=== PATIENT | female | born 1975 ===

== ENCOUNTER 2023-02-20 05:35 | Day surgery (SDC) | payer OTHER ==
[~2023-02-20] VITALS: Ht 162.6 cm; Wt 81.6 kg
[~2023-02-20 05:35] MED LIST: SYNTHROID137 MCG PO
== END 2023-02-20 15:00 | disposition home or self-care (01) ==
LOC: CIR.AMB 05:35
PROVIDERS: ATTEND Obstetrics & Gynecology
DX: N95.0 Postmenopausal bleeding (principal); D39.0 Neoplasm of uncertain behavior of uterus; N87.1 Moderate cervical dysplasia; Z20.822 Contact with and (suspected) exposure to COVID-19

== ENCOUNTER 2023-03-27 05:22 | Day surgery (SDC) | payer OTHER ==
[2023-03-24 09:34] LABS: HEMATOCRIT 41.3 % (36.0-45.00); HEMOGLOBIN 14.2 g/dL (12.0-15.00); MEAN CELL VOLUME 92.7 fL (80.00-100.00); MEAN CORPUSCULAR HEMOGLOBIN 31.9 pg (27.00-32.0); MEAN CORPUSCULAR HGB CONC 34.4 g/dl (32.0-36.0); RED BLOOD COUNT 4.46 M/uL (4.00-6.00); RED CELL DISTRIBUTION WIDTH 12.9 % (11.5-14.5)
[2023-03-24 09:48] LABS: PLATELET COUNT 252 K/uL (150-450)
[2023-03-24 10:05] LABS: URINE APPEARANCE Cloudy; URINE BILIRRUBIN Negative (NEGATIVE); URINE BLOOD Negative; URINE COLOR Yellow; URINE GLUCOSE Negative (NEGATIVE); URINE LEUKOCYTE Trace; URINE NITRATE Negative; URINE PROTEIN Negative (NEGATIVE); URINE UROBILINOGEN 0.2 E.U./dl
[2023-03-24 10:09] LABS: URINE EPITHELIAL CELLS 111.1 uL (0.0-38.8); URINE WBC 51.9 uL (0.0-23.2)
[2023-03-24 10:20] LABS: URINE RBC 1.1 uL (0.0-20.8)
[2023-03-24 11:00] LABS: INR 0.96; PARTIAL THROMBOPLASTIN TIME 27.9 SECONDS (22.0-34.0); PROTHROMBIN TIME 10.1 SECONDS (9.0-11.5)
[2023-03-24 11:12] LABS: ALBUMIN 4.3 gm/dL (3.4-5.0); BILIRUBIN TOTAL 0.48 mg/dL (0.3-1.2); CREATININE SERUM 0.65 mg/dL (0.55-1.02); GFR 98.13; GLOBULINA 3.8 G/DL (2.4-3.5); POTASSIUM 4.4 mEq/L (3.5-5.1); TOTAL PROTEIN 8.1 gm/dL (6.4-8.2)
== END 2023-03-27 16:45 | disposition home or self-care (01) ==
LOC: CIR.AMB 05:22
PROVIDERS: ATTEND Obstetrics & Gynecology
DX: R87.613 High grade squamous intraepithelial lesion on cytologic smear of cervix (HGSIL) (principal); N72 Inflammatory disease of cervix uteri; E78.5 Hyperlipidemia, unspecified; E03.9 Hypothyroidism, unspecified